=== PATIENT | female | born 1980 | race Caucasian/White ===

== ENCOUNTER 2017-10-25 14:09 | Outpatient (CLI) | payer OTHER | END 2017-10-25 14:10 | disposition home or self-care (01) | LOC: BICMAMMO 14:09 | PROVIDERS: ATTEND Internal Medicine | DX: Z98.82 Breast implant status; N63.10 Unspecified lump in the right breast, unspecified quadrant; R92.8 Other abnormal and inconclusive findings on diagnostic imaging of breast | CPT/HCPCS: G0279 ==

== ENCOUNTER 2018-10-28 16:32 | Emergency (ER) | payer BC ==
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
== END 2018-10-28 17:35 | disposition home or self-care (01) ==
LOC: SCSER 16:32
DX: S52.042A Displaced fracture of coronoid process of left ulna, initial encounter for closed fracture (principal); F43.10 Post-traumatic stress disorder, unspecified; F17.210 Nicotine dependence, cigarettes, uncomplicated; Z79.899 Other long term (current) drug therapy; V43.52XA Car driver injured in collision with other type car in traffic accident, initial encounter
CPT/HCPCS: 24675